=== PATIENT | male | born 1990 | race Caucasian/White ===

== ENCOUNTER → 2016-12-28 | Outpatient (REF) | payer OTHER ==
[2016-12-28 18:53] LABS: AMYLASE 40 U/L (25-115)
== END ==
LOC: M LAB REF 17:33
PROVIDERS: ATTEND Nurse Practitioner Family
DX: R10.13 Epigastric pain (principal)

== ENCOUNTER → 2021-08-28 | Outpatient (REF) | payer OTHER ==
[2021-08-30 08:14] LABS: LDL DIRECT 70 mg/dL (0-99)
== END ==
LOC: M LAB REF 12:47
PROVIDERS: ATTEND Physician Assistant Medical
DX: Z00.00 Encounter for general adult medical examination without abnormal findings (principal)

== ENCOUNTER → 2023-06-09 | Outpatient (REF) | payer BC ==
[2023-06-11 08:11] LABS: LDL DIRECT 63 mg/dL (0-99)
== END ==
LOC: M LAB REF 16:44
PROVIDERS: ATTEND Physician Assistant Medical
DX: E78.5 Hyperlipidemia, unspecified (principal)

== ENCOUNTER → 2023-06-23 | Outpatient (CLI) | payer BC | LOC: M PLALAB 16:22 | PROVIDERS: ATTEND Obstetrics & Gynecology | DX: Z31.440 Encounter of male for testing for genetic disease carrier status for procreative management (principal) ==